=== PATIENT | female | born 1945 | race Caucasian/White ===

== ENCOUNTER 2018-02-20 15:40 | Emergency (ER) | payer MEDICARE, BC, SELFPAY ==
[2018-02-20] VITALS (7 sets, daily range): BP systolic 114–134; BP diastolic 57–71; PULSE 60–67; RESP 13–18; TEMP 36.9; O2SAT 98–100
--- NOTE | 2018-02-20 16:04 | DI.RAD.S_ITS ---
PROCEDURE: XR CHEST 1V INDICATIONS: lightheaded TECHNIQUE: One view of the chest was acquired. COMPARISON: None. FINDINGS: Surgical changes and devices: None. Lungs and pleura: No pleural effusions or pneumothorax. Lungs are clear. Mediastinum: Mediastinal contours appear normal. Heart size is normal. Bones and chest wall: No suspicious bony lesions. Mild dextroconvex scoliotic curvature is seen. Age-appropriate bony degenerative changes are seen. Overlying soft tissues appear unremarkable. IMPRESSION: Unremarkable imaging examination for age. Dictated by: Carlos Klein M.D. on 02/20/2018 at 16:57 Approved by: Carlos Klein M.D. on 02/20/2018 at 16:57
[2018-02-20 16:38] LABS: Add Manual Diff / Slide Review NO; Eosinophils Percent Auto 2.3 % (2-4); Hematocrit 38.3 % (36-46); Hemoglobin 13.2 g/dL (12.0-16.0); Lymphocytes Percent Auto 26.7 % (25-40); Mean Corpuscular HGB Conc 34.4 % (30-36); Mean Corpuscular Hemoglobin 31.1 PG (26-34); Mean Corpuscular Volume 90.2 fL (80-100); Neutrophils Absolute Auto 4300 /uL (3000-5900); Platelet Count 220 X10^3/uL (150-400); Red Blood Cell Count 4.25 X10^6/uL (4.0-5.2); Red Cell Distribution Width 12.8 % (11.6-14.8); White Blood Cell Count 6.9 X10^3/uL (4.5-11.0)
[2018-02-20] MEDS: SODIUM CHLORIDE 0.9% 1,000 ML 150 ML IV (16:45)
[2018-02-20 16:49] LABS: BUN Creatinine Ratio 27.1 (6-22); Blood Urea Nitrogen 19 mg/dL (7-17); Calcium 9.5 mg/dL (8.4-10.2); Carbon Dioxide 29 mmol/L (22-32); Chloride 105 mmol/L (98-107); Creatine Kinase 41 U/L (30-135); Estimated Glomerular Filt Rate > 60.0 mL/min (>60); Glucose 94 mg/dL (80-110); HEMOLYSIS < 15 (0-50); Magnesium 2.1 mg/dL (1.6-2.3); Potassium 4.2 mmol/L (3.4-5.1); Sodium 142 mmol/L (137-145)
[2018-02-20 17:02] LABS: Troponin I < 0.012 ng/mL (0.01-0.034)
[2018-02-20 17:52] LABS: Free T4, Direct Thyroxine 0.91 ng/dL (0.78-2.19)
--- NOTE | 2018-02-20 20:35 | ED_ITS ---
HPI - Chest Pain General Chief Complaint: Chest Pain Stated Complaint: fells faint,states irregular heart rate Time Seen by Provider: 02/20/18 15:55 Source: patient and family Mode of arrival: ambulatory Limitations: no limitations History of Present Illness HPI narrative: 72-year-old female with a recent history of palpitations presents with her with a chief complaint of some palpitations earlier in the day. Additionally she complains of some episodes of feeling bit faint none of which is present now. She denies chest pain or shortness of breath. She denies any injury. She has no fever or chills. She denies nausea, vomiting or diarrhea. She saw her primary care provider on whom ordered labs and had set her up with a Holter monitor which she has already turned and has an appointment on Thursday to discuss the findings. She denies any significant alcohol, caffeine, or nicotine. She denies any new medications or dietary supplements. She denies any significant stressors in her life. Onset (ago): day(s) Duration: intermittent Onset: during rest Severity: mild Related Data Home Medications Medication Instructions Recorded Confirmed ACETAMINOPHEN (#TYLENOL) 500 mg PO Q6HP #0 12/23/10 Calcium Carbonate/Vitamin D 1 sgl PO QDAY #0 12/23/10 (#CALCIUM 1200 W/VITAMIN D 600 MG-100 IU) Fish Oil (Fish Oil 500 MG Softgel) 500 mg PO BID #0 12/23/10 IBUPROFEN (Ibuprofen) #0 12/23/10 estradiol [Menostar] 0.014 mg TD QWEEK #0 12/23/10 Review of Systems Review of Systems All systems reviewed & are unremarkable except as noted in HPI and below Constitutional Denies chills, Denies fever(s), Denies lethargy and Denies weakness Eyes Denies change in vision, Denies eye discharge, Denies irritation and Denies loss of vision ENT Ears, Nose, Mouth, and Throat: Denies change in voice, Denies neck pain and Denies sore throat Cardiovascular Denies chest pain, Denies irregular heart rhythm, Reports lightheadedness, Reports palpitations, Denies dyspnea, Denies dyspnea on exertion and Denies orthopnea Respiratory Denies cough, Denies dyspnea, Denies dyspnea on exertion and Denies wheezing Gastrointestinal Gastrointestinal: Denies abdominal pain, Denies change in bowel habits, Denies diarrhea, Denies nausea and Denies vomiting Genitourinary Denies hematuria, Denies flank pain, Denies urinary incontinence and Denies urinary urgency Musculoskeletal Denies neck pain Integumentary/Breasts Denies pruritus, Denies erythema, Denies rash and Denies wounds Neurologic Denies confusion, Denies loss of vision and Denies weakness Psychiatric Denies anxiety, Denies confusion, Denies depression, Denies homicidal ideation and Denies suicidal ideation Endocrine Reports palpitations Hematologic/Lymphatic Denies easy bruising Allergic/Immunologic Denies wheezing REPLACED BY [facility] Social History Smoking Status: Never smoker Exam Initial Vital Signs Initial Vital Signs: Vital Signs Temperature 98.4 F 02/20/18 15:49 Pulse Rate 66 02/20/18 15:49 Respiratory Rate 18 02/20/18 15:49 Blood Pressure 133/69 02/20/18 15:49 Pulse Oximetry 100 02/20/18 15:49 Const General: cooperative and well developed Nutritional Appearance: well nourished Orientation: alert, awake, oriented x3 and not confused HENMT Head: normocephalic and atraumatic Ears: external ears normal and TM's normal bilaterally Nose: external nose normal and No nasal discharge Face and sinus: sinuses nontender, face symmetric, no sinus tenderness and No dry mucous membranes Mouth: oral mucosae normal and moist mucous membranes Teeth and gingiva: dentition normal Throat: tonsils normal and uvula midline Eyes General: appearance normal, both eyes and all related structures Eyelids: eyelids normal Conjunctivae: conjunctivae normal Sclera: sclerae normal Pupils: PERRL EOM: EOM intact bilaterally Neck Neck: normal visual inspection, trachea midline, No lymphadenopathy, No midline deformity and No JVD Lymphatic: No lymphedema Chest Chest: normal inspection of the chest Resp Effort & Inspection: normal respiratory effort, able to speak in complete sentences, no respiratory distress and no use of accessory muscles Auscultation: clear to auscultation bilaterally, no rales, no rhonchi and no wheezes Cardio Rate: regular rate Rhythm: regular rhythm Heart Sounds: no click, no gallops, no murmurs and no rubs Pulses: normal peripheral pulses GI Inspection: non-distended Palpation: soft, no hepatosplenomegaly, No guarding, No pulsatile mass and No tender Auscultation: normal bowel sounds Back/Spine/Pelvis Back: No CVA tenderness Cervical Spine: cervical ROM normal and No pain with cervical ROM Thoracic/Lumbar Spine: thoracic and lumbar spine normal to inspection Skin General: no rashes or lesions noted, No jaundice and No petechiae Neuro General: alert, oriented x3, gait normal and no focal motor deficits Speech: speech normal Extrem General: full ROM, no clubbing, cyanosis or edema, no pedal edema and no calf tenderness Psych Appearance: well kempt Mental Status: mental status grossly normal Attitude: cooperative Thought Content: normal and suicidality Judgment: judgment good Course Orders Ordered: ED Orders 02/20/18 15:46 EKG-12 Lead Routine 02/20/18 16:04 XR chest 1V Stat 02/20/18 16:20 Basic Metabolic Panel Stat Complete Blood Count AUTO DIFF Stat Free T4 Free Thyroxine Stat Magnesium Stat Thyroid Stimulating Hormone Stat Troponin & CK Cardiac Panel Stat Discontinued Medications Sodium Chloride (Normal Saline 0.9%) 1,000 mls @ 150 mls/hr IV CONT CRISTIANO Last Infusion: 02/20/18 18:22 Dose: 150 mls/hr Admin: 02/20/18 16:45 Dose: 150 mls/hr Reevaluation(s) Reevaluation #1: Patient had an episode of palpitations and was noted to have a few PVCs on the monitor. She was able to pull up a recent EKG from the [facility] on her phone and is nearly identical to that which required today, noting a right bundle branch block. Cardiology reviewed that EKG and states the findings are consistent with previous EKGs Vital Signs - 8 hr 02/20/18 15:49 02/20/18 16:00 02/20/18 16:30 Temperature 98.4 F Pulse Rate 66 67 64 Respiratory Rate 18 15 14 Blood Pressure 133/69 Blood Pressure [Right Arm] 117/57 L 121/60 Pulse Oximetry 100 99 98 02/20/18 17:00 02/20/18 17:30 02/20/18 18:00 Temperature Pulse Rate 60 60 66 Respiratory Rate 14 13 17 Blood Pressure Blood Pressure [Right Arm] 114/57 L 121/61 134/71 Pulse Oximetry 99 99 99 02/20/18 18:18 Temperature Pulse Rate 62 Respiratory Rate 16 Blood Pressure 134/71 Blood Pressure [Right Arm] Pulse Oximetry 99 MDM - Chest Pain Differential Diagnosis Likely fracture of rib, pneumothorax, stable angina, unstable angina pectoris, atypical chest pain, st elevation myocardial infarction, costochondritis and chest pain Medical Records Data Attestation: I reviewed the patient's medical records. Lab Data Result diagrams: 02/20/18 16:20 02/20/18 16:20 Lab Results 02/20/18 02/20/18 02/20/18 Range/Units 16:20 16:20 16:20 WBC 6.9 (4.5-11.0) X10^3/uL RBC 4.25 (4.0-5.2) X10^6/uL Hgb 13.2 (12.0-16.0) g/dL Hct 38.3 (36-46) % MCV 90.2 (80-100) fL MCH 31.1 (26-34) PG MCHC 34.4 (30-36) % RDW 12.8 (11.6-14.8) % Plt Count 220 (150-400) X10^3/uL Neut % (Auto) 62.0 (50-75) % Lymph % (Auto) 26.7 (25-40) % [place] % (Auto) 8.0 (3-14) % Eos % (Auto) 2.3 (2-4) % Baso % (Auto) 1.0 (0-2) % Neut # (Auto) 4300 (6275-0564) /uL Sodium 142 (137-145) mmol/L Potassium 4.2 (3.4-5.1) mmol/L Chloride 105 (98-107) mmol/L Carbon Dioxide 29 (22-32) mmol/L BUN 19 H (7-17) mg/dL Creatinine 0.70 (0.52-1.04) mg/dL Estimated GFR > 60.0 (>60) mL/min BUN/Creatinine Ratio 27.1 H (6-22) Glucose 94 (80-110) mg/dL Calcium 9.5 (8.4-10.2) mg/dL Magnesium 2.1 (1.6-2.3) mg/dL Total Creatine Kinase 41 (30-135) U/L Troponin I < 0.012 (0.01-0.034) ng/mL TSH 1.30 (0.47-4.68) uIU/mL Free T4 0.91 (0.78-2.19) ng/dL Urine Dip Bedside Urine Glucose Negative Bedside Urine Bilirubin - Negative Bedside Urine Ketone - Negative Urine Specific Dwarf 1.010 Bedside Urine Occult Blood +/- Bedside Urine pH 6.0 Bedside Urine Protein - Negative Bedside Urine Urobilinogen - Negative Bedside Urine Nitrite - Negative Bedside Urine Leukocytes - Negative Esterase ECG Data Attestation: I personally reviewed and interpreted this ECG as follows: Prior ECG tracings: available for review Interpretation: Normal sinus rhythm with a right bundle branch block. No signs of ischemia such as ST elevation or T-wave inversions. Discharge Plan Departure Patient Disposition: Home Clinical Impression: Heart palpitations Discharge Date/Time: 02/20/18 18:19 Interventions: ED Discharge Assessment Last Done: 02/20/18 18:18 Instructions: DI for Palpitations Activity Restrictions/Additional Instructions: *You have been diagnosed with [ palpitations resolved ] *What to do: *Take medications as directed *Follow up with your primary care provider in 2-3 days, call for an appointment. Let them know you were seen in the Emergency Department and that we ask that you be seen in follow up *Return to ER if you should have any new, worsening or concerning symptoms , such as [ ] Prescriptions: No Action estradiol [Menostar] 0.014 MG/24 HR patch weekly 0.014 mg TD QWEEK Qty: 0 RF: 0 ACETAMINOPHEN (#TYLENOL) 500 mg PO Q6HP Qty: 0 RF: 0 IBUPROFEN (Ibuprofen) Qty: 0 RF: 0 Calcium Carbonate/Vitamin D (#CALCIUM 1200 W/VITAMIN D 600 MG-100 IU) 1 sgl PO QDAY Qty: 0 RF: 0 Fish Oil (Fish Oil 500 MG Softgel) 500 mg PO BID Qty: 0 RF: 0
== END 2018-02-20 18:19 | disposition home or self-care (01) ==
PROVIDERS: Emergency Provider Emergency Medicine
DX: R00.2 Palpitations (principal); R07.89 Other chest pain
CPT/HCPCS: 71045; 80048; 81003; 82550; 82553; 83735; 84439; 84443; 84484; 85025; 93005; 93041; 96360; 96361; 99284; 99285